=== PATIENT | male | born 1985 | race Caucasian/White ===

== ENCOUNTER 2016-12-10 09:06 | Emergency (ER) | payer OTHER ==
[~2016-12-10 09:06] MED LIST: IBUPROFEN PO; MEDROL DOSEPAK4 MG PO; NO MEDICATIONS; ROBAXIN 750750 MG PO; VOLTAREN50 MG PO
== END 2016-12-10 09:36 | disposition home or self-care (01) ==
LOC: CFTX 09:06 → CED 09:06 → CFTX 09:28
DX: M54.16 Radiculopathy, lumbar region (principal); F17.210 Nicotine dependence, cigarettes, uncomplicated
CPT/HCPCS: 96372; 99283; J1885

== ENCOUNTER 2017-03-24 11:20 | Emergency (ER) | payer OTHER ==
[~2017-03-24] VITALS: Ht 182.9 cm; Wt 124.7 kg
--- NOTE | ~2017-03-24 | CT2 ---
[facility] A Service [facility] RADIOLOGY TEXT RESULTS PATIENT: JORDANA RODRIGUEZ LOCATION: [facility] : 87 UNIT #: [id number] AGE: [address]: Manas Cunha MD SEX: M ORDER DR: [id number] [facility]. [place], [place] [address] [id number] E MR#: [id number] #: [id number] NAME: JORDANA RODRIGUEZ : 1985 SEX: M STUDY DATE/TIME: 03/24/2017 15:22 UNIT: [facility] ROOM: STUDY DESCRIPTION: CT Abd and Pelv W Cont Ordering Physician: Yogesh Dumont M.D. Primary Care Physician: Christopher Pathak M.D. MEDICAL IMAGING REPORT This report is preliminary unless electronic signature is present EXAM CT abdomen and pelvis with contrast HISTORY Abdomen pain. Nausea, vomiting and diarrhea for a week. TECHNIQUE Patient was given 100 cc of Isovue-370 and axial 5 mm images were obtained through the abdomen and pelvis. Sagittal and coronal reconstructions were generated. This CT exam was performed with one or more of the following radiation dose reduction techniques: automatic exposure control, adjustment of mA and/or kV according to patient size, and iterative reconstruction. COMPARISON STUDIES None. FINDINGS The lung bases are clear. The liver, gallbladder, spleen, pancreas, adrenal glands and kidneys are normal in appearance. The aorta is normal in size and there is no adenopathy. The bowel, including the appendix, appears normal. The bladder and prostate gland are normal. Bones are unremarkable. IMPRESSION Normal study. Normal appendix. Dictated by... Jonathan Cross M.D. [facility] A Service [facility] RADIOLOGY TEXT RESULTS PATIENT: JORDANA RODRIGUEZ LOCATION: [facility] : 87 UNIT #: [id number] AGE: [address]: Manas Cunha MD SEX: M ORDER DR: THIS IS AN ELECTRONICALLY VERIFIED REPORT Jonathan Cross M.D. at 03/25/2017 12:43 PM FEL/pcl TD: 03/24/2017 23:52 JOB #: [id number] MEDICAL IMAGING REPORT Page 1 of 1 COPY
[2017-03-24 12:34] LABS: URINE SOURCE CLEAN CATCH
[2017-03-24 12:41] LABS: BASOPHIL% 0.7 % (0-2.5); EOSINOPHIL# 0.1 X10e3 (0-0.7); EOSINOPHIL% 0.8 % (0.0-7.0); HEMATOCRIT 46.8 % (38.0-50.0); HEMOGLOBIN 16.1 gm/dL (13.0-16.0); LYMPHOCYTE# 1.7 X10e3 (1.0-3.5); LYMPHOCYTE% 25.7 % (17.0-45.0); MEAN CELL VOLUME 97.6 FL (83-96); MEAN CORPUSCULAR HEMOGLOBIN 33.5 PG (28-34); MEAN CORPUSCULAR HGB CONC 34.3 g/dL (30-36); MEAN PLATELET VOLUME 8.8 FL (6.5-11.5); MONOCYTE# 0.4 X10e3 (0-1.0); MONOCYTE% 6.8 % (3.0-12.0); NEUTROPHIL# 4.4 X10e3 (1.5-7.1); PLATELET COUNT 212 X10e3 (140-420); RED CELL DISTRIBUTION WIDTH 13.4 % (11.0-15.5); WHITE BLOOD COUNT 6.6 X10e3 (4.0-10.5)
[2017-03-24 12:45] LABS: URINE APPEARANCE CLEAR; URINE BILIRUBIN NEG (NEG); URINE BLOOD NEG (NEG); URINE COLOR YELLOW; URINE GLUCOSE NEG (NEG); URINE KETONE NEG (NEG); URINE LEUKOCYTE ESTERASE NEG (NEG); URINE NITRATE NEG (NEG); URINE PROTEIN NEG (NEG); URINE SPECIFIC GRAVITY 1.016 (1.003-1.035); URINE UROBILINOGEN 0.2 MG/DL (NEG)
[2017-03-24 12:46] LABS: DIFF IND NO
[2017-03-24 12:56] LABS: CULTURE INDICATED? NO
[2017-03-24 13:08] LABS: ALBUMIN SERUM 4.3 g/dL (3.5-5.0); BILIRUBIN, DIRECT 0.1 mg/dL (0.0-0.2); BILIRUBIN,INDIRECT 0.3 mg/dL (0.0-0.9); BILIRUBIN,TOTAL 0.4 mg/dL (0.2-2.0); CALCIUM SERUM 9.1 mg/dL (8.4-10.2); CREATININE SERUM 0.9 mg/dL (0.6-1.4); GLOM FILT RATE Estimated 114.2 mL/min (>60); PROTEIN TOTAL SERUM 7.9 g/dL (6.0-8.3)
== END 2017-03-24 16:30 | disposition home or self-care (01) ==
LOC: CED 11:20
DX: R10.32 Left lower quadrant pain (principal); R19.7 Diarrhea, unspecified; K21.9 Gastro-esophageal reflux disease without esophagitis; F17.210 Nicotine dependence, cigarettes, uncomplicated
CPT/HCPCS: 36415; 74177; 80048; 80076; 81003; 83690; 85025; 99284; Q9967